=== PATIENT | male | born 1940 | race Two or more races ===

== ENCOUNTER 2018-08-02 03:00 | Inpatient (IN) | payer MEDICARE ==
[~2018-08-02] VITALS: Ht 177.8 cm; Wt 92.1 kg
[2018-08-02] MEDS ORDERED: ASPIRIN 81MG TABLET PO ONE (05:15)
[2018-08-02 05:28] LABS: CHLORIDE 105 mEq/L (98-107)
[2018-08-02 05:29] LABS: BASOPHILS % 0.7 % (0.0-2.0); EOSINOPHILS % 0.7 % (0.0-5.0); HEMATOCRIT. 42.7 % (42.0-52.0); HEMOGLOBIN. 14.3 g/dL (14.0-18.0); LYMPHOCYTES % 14.1 % (20.0-50.0); MEAN CORPUSCULAR HEMOGLOBIN 29.6 pg (28.0-32.0); MEAN CORPUSCULAR VOLUME 88.1 fL (80.0-94.0); MEAN PLATELET VOLUME 9.4 fl (7.4-10.4); MONOCYTES % 12.9 % (2.0-8.0); NEUTROPHILS % 71.6 % (40.0-76.0); PLATELET 185 x1000/uL (130-400); RED BLOOD CELL COUNT 4.84 mill/uL (4.7-6.1); RED CELL DISTRIBUTION WIDTH 13.1 % (11.6-14.6)
[2018-08-02] MEDS ORDERED: DILTIAZEM HCL 5MG/ML 5ML VIAL IV ONE ×2 (06:30→08:00)
[2018-08-02] MEDS ORDERED: IOHEXOL-350 100 ML BOTTLE ONE (07:40)
[2018-08-02] MEDS ORDERED: DILTIAZEM HCL 90MG TABLET PO ONE (08:00)
[2018-08-02] MEDS ORDERED: ENOXAPARIN 100MG/ML SYR SUBCUT ONE (08:45)
[2018-08-02] MEDS ORDERED: ACETAMINOPHEN 325MG TABLET PO PRN (09:45)
[2018-08-02] MEDS ORDERED: CLONIDINE 0.1MG TABLET PO PRN (09:45)
[2018-08-02] MEDS ORDERED: NITROGLYCERIN 0.4MG TABLET SL SL PRN (09:45)
[2018-08-02] MEDS ORDERED: ONDANSETRON HCL 4MG/2ML INJ IV PRN (09:45)
[2018-08-02] MEDS ORDERED: LORAZEPAM 0.5MG TABLET PO PRN (09:45)
[2018-08-02] MEDS ORDERED: NA PHOS,M-B/NA PHOS,DI-BA ENEMA 118ML PR PRN (09:45)
[2018-08-02] MEDS ORDERED: MAGNESIUM/ALUMINUM HYDROXIDE/SIMETHICONE 30ML UDC PO PRN (09:45)
[2018-08-02] MEDS ORDERED: TRAMADOL 50MG TABLET PO PRN (09:45)
[2018-08-02] MEDS ORDERED: GUAIFENESIN 200MG/10ML SUGAR FREE UDC PO PRN (09:45)
[2018-08-02] MEDS ORDERED: IPRATROPIUM/ALBUTEROL 0.5-3(2.5)MG/3ML NEB INH PRN (09:45)
[2018-08-02] MEDS ORDERED: MORPHINE SULFATE 4 MG/ML CPJ (NOT FOR IM USE) IV PRN (09:45)
[2018-08-02] MEDS ORDERED: ASPIRIN 325MG EC TABLET PO NR (11:30)
[2018-08-02] MEDS: DILTIAZEM HCL 60MG TABLET PO SCH ×2 (12:00→17:54)
[2018-08-02] MEDS ORDERED: DILTIAZEM HCL 5MG/ML 5ML VIAL IV PRN (13:30)
[2018-08-02] MEDS: AMIODARONE HCL 200 MG TABLET PO SCH ×3 (14:30→17:20)
[2018-08-02 16:41] VITALS: BP 121/76
[2018-08-02] MEDS ORDERED: PNEUMOCOCCAL 23-VAL P-SAC VAC 0.5 ML IM ONE (17:00)
[2018-08-02] MEDS ORDERED: INFLUENZA VIRUS VACCINE(AFLURIA) 0.5ML SYR IM ONE (17:00)
[2018-08-02] MEDS ORDERED: ZOLPIDEM TARTRATE 5MG TABLET PO PRN (18:01)
[2018-08-02 18:05] VITALS: BP 128/72
[2018-08-02 19:48] VITALS: BP 124/64
[2018-08-02] MEDS ORDERED: DIAZ5TAB4 PO (20:23)
[2018-08-02] MEDS ORDERED: OLME20TA14 PO (20:23)
[2018-08-02] MEDS ORDERED: PRAV20TA57 PO (20:23)
[2018-08-02 20:32] LABS: INR 1.1; PROTHROMBIN TIME 11.3 sec (9.1-11.1)
[2018-08-02 20:51] LABS: CREATINE KINASE 168 IU/L (39-308)
[2018-08-02 20:52] LABS: CREATINE KINASE MB FRACTION 1.4 ng/mL (0.5-3.6)
[2018-08-02] MEDS: ENOXAPARIN 80MG/0.8ML SYR SUBCUT SCH (21:22)
[2018-08-02] MEDS: FAMOTIDINE 20MG TABLET PO SCH (21:22)
[2018-08-02 22:14] VITALS: BP 100/55
[2018-08-02 22:32] LABS: *AMPHETAMINES SCREEN URINE NEGATIVE (NEGATIVE)
[2018-08-02 22:33] LABS: *BARBITURATES SCREEN URINE NEGATIVE (NEGATIVE); *BENZODIAZEPINES SCREEN URINE PRESUMTIVE POSITIVE (NEGATIVE); *COCAINE SCREEN URINE NEGATIVE (NEGATIVE); METHADONE URINE SCREEN NEGATIVE (NEGATIVE); OPIATES URINE SCREEN NEGATIVE (NEGATIVE); PHENCYCLIDINE URINE SCREEN NEGATIVE (NEGATIVE)
[2018-08-02 22:34] LABS: CANNABINOID URINE SCREEN NEGATIVE (NEGATIVE)
[2018-08-02 23:06] LABS: CREATINE KINASE 165 IU/L (39-308)
[2018-08-02 23:07] LABS: CREATINE KINASE MB FRACTION 1.3 ng/mL (0.5-3.6)
[2018-08-03] VITALS (14 sets, daily range): BP systolic 102–132; BP diastolic 39–73
[2018-08-03] MEDS: DILTIAZEM HCL 60MG TABLET PO SCH ×4 (06:52→17:59)
[2018-08-03] MEDS: AMIODARONE HCL 200 MG TABLET PO SCH ×3 (08:10→17:57)
[2018-08-03] MEDS: FAMOTIDINE 20MG TABLET PO SCH (08:10)
[2018-08-03] MEDS: ENOXAPARIN 80MG/0.8ML SYR SUBCUT SCH (08:11)
[2018-08-03] MEDS ORDERED: ASPIRIN 325MG EC TABLET PO SCH (09:00)
[2018-08-03] MEDS ORDERED: METOPROLOL TARTRATE 25MG TABLET PO SCH (10:45)
[2018-08-03] MEDS ORDERED: ATORVASTATIN CALCIUM 10MG TABLET PO SCH (21:00)
[2018-08-04] MEDS ORDERED: REGADENOSON 0.4 MG/5 ML IV SCH (10:45)
== END 2018-08-03 20:40 | disposition short-term general hospital (02) | DRG 309 ==
LOC: ER 03:45 → 3WST 08:34 → ENRESERV 13:56 → SUPCPDRO 17:06
PROVIDERS: ADMIT Internal Medicine; ATTEND Internal Medicine
DX: I48.91 Unspecified atrial fibrillation (principal); I24.9 Acute ischemic heart disease, unspecified; E78.5 Hyperlipidemia, unspecified; I10 Essential (primary) hypertension; F41.9 Anxiety disorder, unspecified; E04.1 Nontoxic single thyroid nodule; E78.00 Pure hypercholesterolemia, unspecified
CPT/HCPCS: 36415; 71045; 71275; 76536; 80061; 80305; 82550; 82553; 83036; 83880; 84443; 84484; 93005; 93306; 93970; 96372; 96374; 96376; 99291; J1650; J3490; Q9967